=== PATIENT | male | born 1955 | race Caucasian/White ===

== ENCOUNTER 2019-04-18 12:57 | Inpatient (IN) | payer SELFPAY ==
[~2019-04-18] VITALS: Ht 175.2 cm; Wt 81.3 kg
[2019-04-18] VITALS (8 sets, daily range): BP systolic 174–195; BP diastolic 88–120
--- NOTE | ~2019-04-18 | EKG ---
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
--- NOTE | ~2019-04-18 | EKG ---
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
--- NOTE | ~2019-04-18 | EKG ---
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
[2019-04-18 13:35] LABS: BASO # 0.1 10*3/uL (0.0-0.1); EOS # 0.2 10*3/uL (0.0-0.4); EOS % 2.4 % (1.0-4.0); HEMATOCRIT 49.3 % (42.0-52.0); HEMOGLOBIN 16.4 g/dl (14.0-18.0); LYMPH # 2.2 10*3/uL (1.3-4.4); LYMPH % 28.3 % (27.0-41.0); MEAN CELL VOLUME 97.4 fl (80.0-94.0); MEAN CORPUSCULAR HGB 32.4 pg (27.0-31.0); MEAN CORPUSCULAR HGB CONC 33.3 g/dl (33.0-37.0); MONO # 0.4 10*3/uL (0.1-1.0); MONO % 5.8 % (3.0-9.0); NEUT # 4.7 10*3/uL (2.3-7.9); NEUT % 62.2 % (47.0-73.0); PLATELET COUNT AUTOMATED 263 10*3/uL (130-400); RED BLOOD COUNT 5.06 10*6/uL (4.50-5.90); WHITE BLOOD COUNT 7.6 10*3/uL (4.8-10.8)
[2019-04-18 13:48] LABS: ACT PARTIAL THROMBO TIME 27.4 SECONDS (20.0-32.1); INTERNATIONAL NORM RATIO 1.2 (2.0-3.5)
[2019-04-18 13:53] LABS: ALBUMIN 3.6 gm/dl (3.1-4.5); ALKALINE PHOSPHATASE 52 U/L (45-117); BUN 19 mg/dl (7-24); CHLORIDE 108 mmol/L (98-107); CREATININE 1.25 mg/dL (0.70-1.30); SGOT/AST 42 IU/L (3-35); SGPT/ALT 57 U/L (12-78); SODIUM 138 mmol/L (136-145); TOTAL PROTEIN 6.9 gm/dL (6.4-8.2)
[2019-04-18 13:59] LABS: TROPONIN I 0.714 ng/ml (<0.045)
[2019-04-18 14:00] LABS: POTASSIUM 4.2 mmol/L (3.5-5.1)
--- NOTE | 2019-04-18 14:00 | NUR ---
TRIPONIN @ 0.664 PER LAB,PHYSICIAN NOTIFIED.
--- NOTE | 2019-04-18 15:16 | NUR ---
PT TO BE TRANSPORT TO THE FLOOR AFTER ECHO IS COMPLETE IN ROOM.
--- NOTE | 2019-04-18 16:09 | NUR ---
UNABLE TO TAKE PT UPSTAIRS DUE TO ECHO, PT GIVEN LASIX AND PT KEEPS STOPPING TO USE THE RESTROOM. WILL CONTINUE TO MONITOR.
--- NOTE | 2019-04-18 16:49 | NUR ---
[facility] , under the services of SARY Lyles MD with a diagnosis of HTN, ACUTE HEART FAILURE. Chief complaint is SOB, ANKLE EDEMA. Patient arrived via wheel chair from ER. Monitor applied. Initial assessment completed. Vital signs taken and recorded. SARY LYLES MD notified of admission to the unit. Orders received. See assessment for past medical history, medications and allergies. Patient and/or family oriented to unit. [facility] visitation policy reviewed. Clothing/patient valuable form completed. CASSY RICHEY
[2019-04-18 17:42] LABS: CHOLESTEROL 127 mg/dL (<200); HDL CHOLESTEROL 38 mg/dl (40-60); LDL CHOLESTEROL 69 mg/dL (9-159); TRIGLYCERIDES 99 mg/dl (<150); VLDL CHOLESTEROL 20 mg/dL (6-40)
--- NOTE | 2019-04-18 20:00 | NUR ---
AAOX3 RESTING IN BED. HEP LOCK INTACT TO RIGHT ANTECUBITAL. PT. VOICES NO C/O AT THIS TIME. CALL LIGHT WITHIN REACH.
--- NOTE | 2019-04-18 22:00 | NUR ---
TOOK MEDICATION WITHOUT DIFFICULTY. CALL LIGHT WITHIN REACH.
[2019-04-19] VITALS (7 sets, daily range): BP systolic 156–186; BP diastolic 83–100
--- NOTE | 2019-04-19 01:00 | NUR ---
MEDICATED WITH APRESOLINE 10 MG SLOW IV PUSH FOR ELEVATED BLOOD PRESSURE; WILL CONTINUE TO MONITOR. PT. VOICES NO C/O; CALL LIGHT WITHIN REACH.
--- NOTE | 2019-04-19 05:10 | NUR ---
CALLED DR. GONZALEZ PERTAINING TO PT'S BLOOD PRESSURE. NO NEW ORDER RECEIVED.
[2019-04-19 06:32] LABS: BUN 11 mg/dl (7-24); CHOLESTEROL 112 mg/dL (<200); CREATININE 0.89 mg/dL (0.70-1.30); TRIGLYCERIDES 74 mg/dl (<150); VLDL CHOLESTEROL 15 mg/dL (6-40)
[2019-04-19 06:35] LABS: HDL CHOLESTEROL 32 mg/dl (40-60); LDL CHOLESTEROL 65 mg/dL (9-159)
[2019-04-19 06:48] LABS: CHLORIDE 104 mmol/L (98-107); SODIUM 140 mmol/L (136-145)
[2019-04-19 08:10] LABS: HEPATITIS B SURFACE AG Negative (Negative); HEPATITIS C VIRUS ANTIBODY <0.1 s/co (0.0-0.9)
--- NOTE | 2019-04-19 20:12 | NUR ---
PRN HYDRALAZINE GIVEN FOR MANUAL BP OF 182/102. CALL LIGHT WITHIN REACH, WILL MONITOR
--- NOTE | 2019-04-19 21:30 | NUR ---
PRN HYDRALAZINE EFFECTIVE PT BP NOW 162/90 MANUALLY
--- NOTE | 2019-04-19 23:52 | NUR ---
24 HR chart check completed.
[2019-04-20] VITALS: BP 157/88
[2019-04-20 07:17] LABS: BUN 15 mg/dl (7-24); CHLORIDE 104 mmol/L (98-107); CREATININE 1.11 mg/dL (0.70-1.30); POTASSIUM 3.9 mmol/L (3.5-5.1); SODIUM 140 mmol/L (136-145)
[2019-04-20 08:00] VITALS: BP 176/92
[2019-04-20] MEDS ORDERED: CARVEDILOL6.25 MG PO (12:25)
[2019-04-20] MEDS ORDERED: FUROSEMIDE10 MG/1 M1 IV (12:25)
[2019-04-20] MEDS ORDERED: Zestril,Prinivi40 MG PO (12:25)
[2019-04-20] MEDS ORDERED: ATORVASTATIN CA20 M1 PO (12:25)
[2019-04-20] MEDS ORDERED: ASPIRIN ADULT L81 M2 PO (12:25)
[2019-04-20] MEDS ORDERED: FINASTERIDE5 M1 PO (12:25)
[2019-04-20] MEDS ORDERED: ALDACTONE25 MG PO (12:25)
[2019-04-20] MEDS ORDERED: K-TAB20 MEQ PO (12:25)
--- NOTE | 2019-04-20 13:00 | NUR ---
Discharge instructions reviewed with patient/family. Patient receptive and verbalizes understanding. Follow-up care arranged. Written instructions given to patient/family. RAYMON QUINN
== END 2019-04-20 13:00 | disposition home or self-care (01) | DRG 291 ==
LOC: ED 12:57 → EDBD 13:05 → EDHOLD 14:50 → 4E 14:59
PROVIDERS: Emergency Medicine; Internal Medicine Cardiovascular Disease; ADMIT Internal Medicine
DX: I13.0 Hypertensive heart and chronic kidney disease with heart failure and stage 1 through stage 4 chronic kidney disease, or unspecified chronic kidney disease (principal); I50.23 Acute on chronic systolic (congestive) heart failure; I16.1 Hypertensive emergency; I42.9 Cardiomyopathy, unspecified; I50.9 Heart failure, unspecified; N40.0 Benign prostatic hyperplasia without lower urinary tract symptoms; N18.3 Chronic kidney disease, stage 3 (moderate); Z87.891 Personal history of nicotine dependence; Z82.49 Family history of ischemic heart disease and other diseases of the circulatory system

== ENCOUNTER → 2020-06-16 | Outpatient (CLI) | payer MEDICARE ==
[~2020-06-16] MED LIST: ALDACTONE25 MG PO; ASPIRIN ADULT L81 M2 PO; ATORVASTATIN CA20 M1 PO; CARVEDILOL6.25 MG PO; FINASTERIDE5 M1 PO; FUROSEMIDE10 MG/1 M1 IV; K-TAB20 MEQ PO; Zestril,Prinivi40 MG PO
== END | disposition home or self-care (01) ==
LOC: CARD 03:30
PROVIDERS: ATTEND Internal Medicine
DX: I37.1 Nonrheumatic pulmonary valve insufficiency (principal); I48.92 Unspecified atrial flutter; I51.7 Cardiomegaly

== ENCOUNTER → 2021-06-27 | Outpatient (CLI) | payer MEDICARE | END | disposition home or self-care (01) | LOC: CARD 00:18 | PROVIDERS: ATTEND Internal Medicine | DX: I08.8 Other rheumatic multiple valve diseases (principal); I42.9 Cardiomyopathy, unspecified; R06.02 Shortness of breath ==

== ENCOUNTER → 2022-07-04 | Outpatient (CLI) | payer MEDICARE | LOC: CARD 13:56 | PROVIDERS: ATTEND Internal Medicine | DX: I08.8 Other rheumatic multiple valve diseases (principal); I48.91 Unspecified atrial fibrillation ==